=== PATIENT | female | born 1940 | race Caucasian/White ===

== ENCOUNTER 2016-11-06 18:44 | Emergency (ER) | payer OTHER ==
[~2016-11-06] VITALS: Ht 165.1 cm; Wt 66.0 kg
[~2016-11-06 18:44] MED LIST: BIOTIN1000 MICRO PO; HYDROCHLOROTHIA25 MG PO; HYOSCYAMINE0.125 MG PO; HYOSCYAMINE0.375 MG PO; KLONOPIN1 MG PO; LOW DOSE ASPIRI81 M1 PO; MIRALAX255 GM PO; VITAMIN D32000 UNIT PO; XYZAL5 MG PO
[2016-11-06 19:05] VITALS: BP 198/86
[2016-11-06] MEDS ORDERED: KEFLEX500 MG PO (19:05)
== END 2016-11-06 19:10 | disposition home or self-care (01) ==
LOC: EME 18:44
DX: S81.811A Laceration without foreign body, right lower leg, initial encounter (principal); W45.8XXA Other foreign body or object entering through skin, initial encounter; L03.115 Cellulitis of right lower limb; I10 Essential (primary) hypertension; Z79.82 Long term (current) use of aspirin
CPT/HCPCS: 99281; 99282

== ENCOUNTER 2017-01-18 01:41 | Emergency (ER) | payer OTHER ==
[~2017-01-18] VITALS: Ht 165.1 cm; Wt 65.4 kg
[~2017-01-18 01:41] MED LIST changes: +KEFLEX500 MG PO
[2017-01-18 03:43] VITALS: BP 166/91
== END 2017-01-18 03:43 | disposition home or self-care (01) ==
LOC: EME 01:41
DX: L76.22 Postprocedural hemorrhage of skin and subcutaneous tissue following other procedure (principal); I48.91 Unspecified atrial fibrillation; Z79.01 Long term (current) use of anticoagulants; Z88.1 Allergy status to other antibiotic agents
CPT/HCPCS: 99281; 99284